=== PATIENT | female | born 1960 | race Caucasian/White ===

== ENCOUNTER 2019-04-04 16:47 | Emergency (ER) | payer OTHER ==
[~2019-04-04] VITALS: Ht 165.1 cm; Wt 89.4 kg
== END 2019-04-04 20:47 | disposition home or self-care (01) ==
LOC: ER 16:47
DX: J06.9 Acute upper respiratory infection, unspecified (principal)

== ENCOUNTER 2024-02-29 15:29 | Emergency (ER) | payer OTHER ==
[~2024-02-29] VITALS: Ht 162.6 cm; Wt 83.9 kg
[2024-02-29] MEDS ORDERED: KETOROLAC TROMETHAMINE 30 MG VIAL IM STA (18:56)
== END 2024-02-29 19:22 | disposition home or self-care (01) ==
LOC: ER 15:30
DX: R46.89 Other symptoms and signs involving appearance and behavior (principal); R52 Pain, unspecified